=== PATIENT | female | born 1970 | race Caucasian/White ===

== ENCOUNTER 2017-11-23 05:19 | Day surgery (SDC) | payer OTHER ==
[2017-11-20 11:46] VITALS: BMI 23.3
[2017-11-23] MEDS ORDERED: PROMETHAZINE HCL 25 MG/1 ML VIAL IVPUSH PRN (09:11)
[2017-11-23] MEDS ORDERED: ONDANSETRON 4 MG/2 ML VIAL IVPUSH PRN (09:11)
[2017-11-23] MEDS ORDERED: LACTATED RINGERS SOLUTION 1,000 ML IV SCH (09:15)
[2017-11-23] MEDS ORDERED: IBUPROFEN 400 MG TABLET (FP) PO PRN (09:20)
[2017-11-23] MEDS ORDERED: ACETAMINOPHEN 325 MG TABLET (FP) PO PRN (09:20)
[2017-11-23] MEDS ORDERED: oxyCODONE HCL 5 MG TABLET PO PRN (09:20)
[2017-11-23] MEDS ORDERED: MIDAZOLAM HCL 2 MG/2 ML SINGLE DOSE VIAL ONE (09:23)
[2017-11-23] MEDS ORDERED: PROPOFOL 20 ML ONE ×2 (09:23)
[2017-11-23] MEDS ORDERED: DEXAMETHASONE SOD PHOSPHATE 4 MG/1 ML VIAL ONE (09:25)
[2017-11-23] MEDS ORDERED: LIDOCAINE HCL 2% JELLY (5 ML/TUBE) ONE (09:25)
[2017-11-23] MEDS ORDERED: ceFAZolin SODIUM 1 GM VIAL ONE (09:25)
[2017-11-23] MEDS ORDERED: SODIUM CHLORIDE 0.9% P/F 10 ML VIAL IJ ONE (09:25)
[2017-11-23] MEDS ORDERED: KETOROLAC TROMETHAMINE 30 MG/1 ML VIAL ONE (09:25)
--- NOTE | 2017-11-23 09:27 | HP ---
Admitting History and Physical - Admission History of Present Illness: 47 yo with history of menometrorrhagia and anemia, failed medical therapy with provera, desiring surgical intervention History Source: Patient - Past Medical History Cardiovascular: No: HTN Pulmonary: No: Asthma Gastrointestinal: Yes: GERD ...LMP: 11/06/17 ...: No ...: 3 ...Para: 2 Heme/Onc: Yes: Anemia - Past Surgical History Additional Past Surgical History: Tubal ligation liposuction - Smoking History Smoking history: Never smoked - Alcohol/Substance Use Hx Alcohol Use: Yes (rarely) History of Substance Use: reports: None - Social History History of Recent Travel: No Home Medications - Allergies Allergies/Adverse Reactions: Allergies Allergy/AdvReac Type Severity Reaction Status Date / Time No Known Allergies Allergy Verified 11/23/17 08:38 - Home Medications Home Medications: Ambulatory Orders NK [No Known Home Medication] 11/20/17 Family Disease History - Family Disease History Family History: Denies Review of Systems - Review of Systems Constitutional: reports: No Symptoms Eyes: reports: No Symptoms Neck: reports: No Symptoms Cardiovascular: reports: No Symptoms Respiratory: reports: No Symptoms Gastrointestinal: reports: No Symptoms Genitourinary: reports: No Symptoms Neurological: reports: No Symptoms Endocrine: reports: No Symptoms Psychiatric: reports: No Symptoms Physical Examination Vital Signs: Vital Signs Temperature 97.9 F 11/23/17 08:35 Pulse Rate 69 11/23/17 08:35 Respiratory Rate 20 11/23/17 08:35 Blood Pressure 108/61 11/23/17 08:35 O2 Sat by Pulse Oximetry (%) 99 11/23/17 08:34 Constitutional: Yes: Well Nourished, No Distress, Calm Cardiovascular: Yes: Regular Rate and Rhythm Respiratory: Yes: Regular, CTA Bilaterally Gastrointestinal: Yes: Normal Bowel Sounds, Soft Edema: No Neurological: Yes: Alert, Oriented ...Motor Strength: WNL Psychiatric: Yes: Alert, Oriented Labs: Endometrial biospy: 11/03/2017 : Disordered proliferative endometrium. No hyperplasia or malignancy seen. Assessment/Plan 47 yo with menometrorrhagia, anemia for hysteroscopy, hydrothermablation 1. Consents reviewed and signed. Reviewed risks including but not limited to infection, bleeding requiring transfusion, damage to surrounding organs such as bowel, bladder, uterine perforation. She expressed understanding and written consent obtained. 2. SCDs for DVT Prophylaxis 3. Will proceed to OR
[2017-11-23] MEDS ORDERED: ceFAZolin SODIUM 1 GM VIAL IVPB ONE (09:55)
--- NOTE | 2017-11-23 10:48 | OP ---
Operative Note - Note: Operative Date: 11/23/17 Pre-Operative Diagnosis: menometrorrhagia; anemia Operation: hysteroscopy, dilation of cervix, hydrothermablation Post-Operative Diagnosis: Same as Pre-op Surgeon: Susana Rodgers Anesthesia: General Estimated Blood Loss (mls): 5 Fluid Volume Replaced (mls): 100 Operative Report Dictated: Yes
[2017-11-23 12:16] VITALS: TEMP 97.5
[2017-11-23 13:04] VITALS: BP 115/76; PULSE 71
--- NOTE | 2017-11-23 20:23 | OP ---
DATE OF OPERATION: 11/23/2017 ATTENDING PHYSICIAN: Eliana Rodgers MD ANESTHESIOLOGIST: Lukasz Evans CRNA EBL: 5 ml PREOPERATIVE DIAGNOSES: Menometrorrhagia, anemia. POSTOPERATIVE DIAGNOSES: Menometrorrhagia, anemia. SURGERY: Hysteroscopy, dilation of cervix, hydrothermal ablation using HTA. INDICATION: Patient is a 47-year-old, 3, para 2, with a history of menorrhagia, who failed outpatient therapy, desiring surgical intervention. She was counseled regarding risks, benefits, alternatives, and complications of procedures, including infection, bleeding, damage to surrounding organs such as bowel, bladder, uterine perforation, hemorrhage requiring transfusion. She expressed understanding. DESCRIPTION OF PROCEDURE: She was brought to the operating room. When anesthesia was found to be adequate, patient was prepped and draped in normal sterile fashion, placed in dorsal lithotomy position using Saad stirrups. A weighted speculum was placed in the posterior vagina. The anterior lip of the cervix was grasped using single-tooth tenaculum. The cervix was gently dilated to a size 21 Hanks dilator to accommodate the hydrothermal ablation apparatus. The apparatus was placed in the uterine cavity. Bilateral ostia visualized. A sessile polyp was noted in the anterior uterus. The hydrothermal ablation was performed under direct visualization. No leakage of fluid noted. After 8 minutes of circulating hot water, a cooling period was performed. Evaluation of the endometrial cavity revealed a good level of ablation of the endometrium. All instruments were removed from the patient's vagina. The patient was awoken from anesthesia and brought to the recovery room in stable condition. ELIANA RODGERS M.D. [id number] MTDD
== END 2017-11-23 13:09 | disposition home or self-care (01) ==
LOC: JASU-SURG 05:19
PROVIDERS: ATTEND Obstetrics & Gynecology
PROC: 0U5B8ZZ Destruction of Endometrium, Via Natural or Artificial Opening Endoscopic (ICD-10-PCS; principal; 2017-11-23 09:00)
PROC: 0UDB7ZX Extraction of Endometrium, Via Natural or Artificial Opening, Diagnostic (ICD-10-PCS; 2017-11-23 09:00)
DX: N92.1 Excessive and frequent menstruation with irregular cycle (principal); D64.9 Anemia, unspecified
CPT/HCPCS: 84703; 86900; 94760